=== PATIENT | male | born 1970 | race Caucasian/White ===

== ENCOUNTER 2016-10-01 12:13 | Emergency (ER) | payer OTHER ==
[~2016-10-01] VITALS: Ht 165.1 cm; Wt 79.0 kg
[~2016-10-01 12:13] MED LIST: LEVE100018 PO; TRAM-40 PO
[2016-10-01 12:19] VITALS: Ht 165.1 cm; Wt 79.0 kg
[2016-10-01] MEDS ORDERED: KETOROLAC 30 MG INJ IM STA (12:52)
[2016-10-01] MEDS ORDERED: CEPH-443 PO (12:56)
[2016-10-01] MEDS ORDERED: SULF1TAB31 PO (12:56)
[2016-10-01] MEDS ORDERED: MUPIROCIN 2% 22 GM OINT TOP ONE (13:00)
--- NOTE | 2016-10-01 18:45 | ERD ---
ER Documentation Chief Complaint Date/Time DATE: 10/01/16 TIME: 18:39 Chief Complaint BODY PAINS, HX MULTIPLE MYELOMA HPI 46-year-old man requesting opioid analgesics for total body pain. Patient has a long history of drug abuse including heroin and methamphetamine. He states he recently left a drug rehab facility. He denies chest pain or shortness of breath, no fevers or chills, no weight loss, no melena, no blood per rectum, no vomiting or diarrhea. Patient denies suicidal or homicidal ideation ROS All systems reviewed and are negative except as per history of present illness. Medications Home Meds Active Scripts Sulfamethoxazole/Trimethoprim* (Bactrim Ds* Tablet) 1 Each Tablet, 1 TAB PO BID , #14 TAB Prov:FELA BAILEY MD 10/01/16 Cephalexin* (Keflex*) 500 Mg Capsule, 500 MG PO TID for 7 Days, CAP Prov:FELA BAILEY MD 10/01/16 Levetiracetam* (Keppra*) 1,000 Mg Tablet, 1000 MG PO BID for 30 Days, TAB Prov:EUGENIO HERNANDEZ NP 03/02/15 Reported Medications Tramadol Hcl* (Ultram*) 50 Mg Tablet, 50 MG PO BID Y for PAIN, TAB 03/01/15 Allergies Allergies: Coded Allergies: mirtazapine (Verified Allergy, Unknown, 03/02/15) morphine (Verified Allergy, Unknown, 03/02/15) PMhx/Soc seizure disorders, hepatitis C, bipolar disorder, drug abuse recently left drug rehab History of Surgery: Yes ((R) knee, (L) wrist, elbow) Anesthesia Reaction: No Hx Neurological Disorder: Yes (seizures) Hx Respiratory Disorders: No Hx Cardiac Disorders: No Hx Psychiatric Problems: Yes (SCHIZOPHERNIA,BIPOLAR) Hx Miscellaneous Medical Probl: Yes (scoliosis, cancer, Hep C.) Hx Alcohol Use: Yes (social) Hx Substance Use: No Hx Tobacco Use: Yes Smoking Status: Current every day smoker FmHx Family History: No diabetes Physical Exam Vitals Vital Signs Date Time Temp Pulse Resp B/P Pulse Ox O2 Delivery O2 Flow Rate FiO2 10/01/16 12:19 97.8 80 18 144/84 99 Physical Exam GENERAL: Well-developed, well-nourished, appears intoxicated HEENT: Moist mucous membranes, pink conjunctiva, no cervical spine tenderness or step-off deformities, no goiter, no jaundice or icterus, extraocular movements intact without pain. No submandibular induration, and no pharyngeal erythema NEURO: Alert and oriented 3, cranial nerves II through XII intact bilaterally, pupils equal round reactive to light, no focal deficits or facial asymmetry, sensation intact distally Strength 5/5 in upper and lower extremities bilaterally CARDIAC: Regular rate and rhythm, no murmurs rubs or gallops LUNGS: Clear bilaterally no wheezing crackles or stridor ABDOMEN: Soft nontender, no guarding, no rigidity, no rebound, no psoas sign no obturator sign. Normoactive bowel sounds SKIN: Warm and dry to touch, positive superficial pustules to the radial aspect of the right wrist, no surrounding skin induration or erythema, no discharge. EXTREMITIES: No clubbing cyanosis or edema, calves are bilaterally symmetrical, no Homans sign, no popliteal cord sign. Distal pulses equal and bilateral PSYCH: Normal affect without agitation or irritability Results 24 hrs Current Medications Medications (Trade) Dose Ordered Sig/Eleonora Route PRN Reason Start Time Stop Time Status Last Admin Dose Admin Mupirocin (Bactroban) 1 applic ONCE ONCE TOP 10/01/16 13:00 10/01/16 13:01 DC Ketorolac Tromethamine (Toradol) 30 mg ONCE STAT IM 10/01/16 12:52 10/01/16 12:54 DC 10/01/16 13:03 Procedures/MDM I administered Toradol 30 mg intramuscular injection and mupirocin 2% antibiotic ointment to the pustules over the right upper extremity. Patient feels much better at this time, and vital signs are normal, symptoms have improved. I did give strict instructions to return to the ED if symptoms continue or worsen, patient will otherwise follow-up with primary care physician. Patient understood instructions and agreed to plan. Disclaimer: Inadvertent spelling and grammatical errors are likely due to EHR/ dictation software use and do not reflect on the overall quality of patient care. Also, please note that the electronic time recorded on this note does not necessarily reflect the actual time of the patient encounter. Departure Diagnosis: Primary Impression: Drug abuse Additional Impressions: Chronic pain Chronic pain type: chronic pain syndrome Qualified Code: G89.4 - Chronic pain syndrome Abscess Condition: Good Patient Instructions: Chronic Pain, Drug Abuse ZOHRABIAN,FELA MD Oct 01, 2016 18:44
== END 2016-10-01 13:18 | disposition home or self-care (01) ==
LOC: E/R 12:13
DX: F15.10 Other stimulant abuse, uncomplicated (principal); R40.2252 Coma scale, best verbal response, oriented, at arrival to emergency department; G89.4 Chronic pain syndrome; L02.413 Cutaneous abscess of right upper limb; F17.210 Nicotine dependence, cigarettes, uncomplicated; R40.2142 Coma scale, eyes open, spontaneous, at arrival to emergency department; R40.2362 Coma scale, best motor response, obeys commands, at arrival to emergency department
CPT/HCPCS: 96372; J1885; Z7502